=== PATIENT | male | born 1960 | race Caucasian/White ===

== ENCOUNTER 2018-05-07 15:33 | Emergency (ER) | payer BC ==
[~2018-05-07] VITALS: Ht 182.9 cm; Wt 88.0 kg
[2018-05-07 16:05] LABS: HEMATOCRIT 41.6 % (39.0-50.0); HEMOGLOBIN 14.2 g/dl (14.0-18.0); IMMATURE GRANULOCYTES 0.4 % (0.0-1.0); MEAN CELL VOLUME 90.4 fL CALC (80.0-100.0); MEAN CORPUSCULAR HGB 30.9 pG CALC (26.0-32.0); MEAN CORPUSCULAR HGB CONC 34.1 g/L CALC (32.0-36.0); NEUT# 5.59 thou/uL (1.82-7.42); RED BLOOD COUNT 4.6 mill/uL (4.70-6.10); RED CELL DISTRI WIDTH 12.8 % (11.5-15.5)
[2018-05-07 16:21] LABS: ACT PARTIAL THROMBO TIME 29.4 SECONDS (20.0-32.5); PROTHROMBIN TIME 11.6 SECONDS (9.0-12.5)
[2018-05-07 16:22] LABS: ALBUMIN 4.5 g/dL (3.2-5.0); ALKALINE PHOSPHATASE 83 u/l (38-126); ANION GAP 15 (6-22 (CALC)); BUN 18 mg/dL (9-20); BUN/CREATININE RATIO 22 (12-20 (CALC)); CARBON DIOXIDE 24 mmol/l (22-30); CHLORIDE 106 mmol/l (95-108); CREATININE 0.8 mg/dL (0.7-1.3); GFR > 60 ML/MIN (>=60 (CALC)); GFR FOR AFR.AMER. > 60 ML/MIN (>=60 (CALC)); POTASSIUM 4.4 mmol/l (3.5-5.1); SGOT/AST 41 u/l (17-59); SGPT/ALT 22 u/l (21-72); SODIUM 141 mmol/l (137-146); TOTAL PROTEIN 7.8 g/dL (6.3-8.2)
[2018-05-07 16:32] LABS: MYOGLOBIN 92 ng/mL (0 - 121)
[2018-05-07 16:35] VITALS: BP 171/95
[2018-05-08 10:07] LABS: GFR > 60 ML/MIN (>=60 (CALC)); GFR FOR AFR.AMER. > 60 ML/MIN (>=60 (CALC))
== END 2018-05-07 16:35 | disposition short-term general hospital (02) | DRG 65 ==
LOC: ED 15:33
PROVIDERS: Emergency Medicine
DX: I62.9 Nontraumatic intracranial hemorrhage, unspecified (principal); G81.94 Hemiplegia, unspecified affecting left nondominant side; R40.2422 Glasgow coma scale score 9-12, at arrival to emergency department

== ENCOUNTER 2023-03-23 08:32 | Emergency (ER) | payer MEDICARE ==
[~2023-03-23] VITALS: Ht 182.9 cm; Wt 82.0 kg
[2023-03-23 09:04] LABS: BASO% 0.6 % (0-3); EOS% 2.5 % (0-8); HEMATOCRIT 46.1 % (39.0-50.0); HEMOGLOBIN 15.5 g/dl (14.0-18.0); IMMATURE GRANULOCYTES 0.4 % (0.0-5.0); LYMPH% 11.9 % (15-41); MEAN CELL VOLUME 97.5 fL CALC (80.0-100.0); MEAN CORPUSCULAR HGB 32.8 pG CALC (26.0-32.0); MEAN CORPUSCULAR HGB CONC 33.6 g/dL CAL (32.0-36.0); MONO% 10.8 % (2-13); NEUT# 5.85 thou/uL (1.82-7.42); NEUT% 73.8 % (42-76); RED BLOOD COUNT 4.73 mill/uL (4.70-6.10); RED CELL DISTRI WIDTH 12.9 % (11.5-15.5)
[2023-03-23] MEDS ORDERED: DOXY-CAPS100 MG PO (09:06)
[2023-03-23 09:27] LABS: ALBUMIN 4.7 g/dL (3.2-5.0); ALKALINE PHOSPHATASE 69 u/l (38-126); ANION GAP 14 (6-22 (CALC)); BILIRUBIN, TOTAL 0.7 mg/dL (0.2-1.3); BUN 10 mg/dL (8-23); BUN/CREATININE RATIO 12 (12-20 (CALC)); CARBON DIOXIDE 27 mmol/l (22-30); CHLORIDE 105 mmol/l (95-108); CREATININE 0.8 mg/dL (0.7-1.3); GFR FOR AFR.AMER. > 60 ML/MIN (>=60 (CALC)); GFR OTHER RACES > 60 ML/MIN (>=60 (CALC)); POTASSIUM 4.4 mmol/l (3.5-5.1); SGOT/AST 39 u/l (19-48); SODIUM 142 mmol/l (137-146); TOTAL PROTEIN 7.9 g/dL (6.3-8.2)
[2023-03-23 10:01] VITALS: BP 162/96
== END 2023-03-23 10:05 | disposition home or self-care (01) ==
LOC: ED 08:32
PROVIDERS: Family Medicine
DX: S01.01XD Laceration without foreign body of scalp, subsequent encounter (principal); I10 Essential (primary) hypertension; W19.XXXD Unspecified fall, subsequent encounter; Z86.73 Personal history of transient ischemic attack (TIA), and cerebral infarction without residual deficits; Z20.822 Contact with and (suspected) exposure to COVID-19